=== PATIENT | male | born 1990 | race Caucasian/White ===

== ENCOUNTER 2024-05-11 17:45 | Emergency (ER) | payer MEDICAID, SELFPAY ==
[2024-05-11 18:17] VITALS: BP 128/89; PULSE 120; RESP 16; TEMP 36.9; O2SAT 99; BMI 26.6
--- NOTE | 2024-05-11 18:27 | XR_ITS ---
Examination: PA lateral chest 2 views Technique: Upright PA lateral chest 2 views Exam date and time: May 11, 2024 1840 hrs. Indications coughing beginning 8 days ago. Findings: Normal heart size Lungs are clear. The osseous structures are intact Impression: No active disease
--- NOTE | 2024-05-11 18:27 | EDNOTE_ITS ---
Upper Respiratory Inf. RME/HPI General Chief Complaint: Flu Like Symptoms Stated Complaint: LUNG PAIN/DIFF BRETHING x 5 DAYS, ON ANTIBIOTICS Time Seen by Provider: 05/11/24 18:15 Source: patient Arrival date/time: 05/11/24 17:45 33-year-old male past medical history of recreational drug abuse and every day vaping presents to the emergency department complains of lung pain and difficulty breathing for 9 days. Patient reports is currently on antibiotics and steroids that were given to him by his primary care provider. Patient reports pulse is usually elevated at his resting pulse is around 115's. Patient reports is worried about having pneumonia and will like to have chest x-ray. Mode of arrival: ambulatory Limitations: no limitations Related Data Previous Rx's ?Medication ?Instructions ?Recorded docusate sodium 100 mg capsule 100 mg PO BID #40 caps 06/05/23 (Colace) hydrocodone 5 mg-acetaminophen 325 1 tab PO Q6H PRN pain (scale score 06/05/23 mg tablet 7-10) #20 tabs ibuprofen 600 mg tablet 600 mg PO Q8H PRN pain (scale 06/05/23 score 4-6) #15 tabs Allergies Allergy/AdvReac Type Severity Reaction Status Date / Time No Known Allergies Allergy Verified 05/11/24 17:52 Review of Systems Review of Systems Systems Reviewed: All systems reviewed, normal except as documented Constitutional Constitutional: Reports system reviewed and no additional complaints, except as documented, Denies body ache(s), Denies chills and Denies fever(s) Eyes Eyes: Reports system reviewed and no additional complaints, except as documented and Denies change in vision ENT Ears, Nose, Mouth, and Throat: Reports system reviewed and no additional complaints, except as documented, Denies disequilibrium, Denies dizziness, Denies sore throat and Denies vertigo Cardiovascular Cardiovascular: Reports system reviewed and no additional complaints, except as documented, Denies chest pain and Reports dyspnea Respiratory Respiratory: Reports system reviewed and no additional complaints, except as documented, Denies chest congestion, Reports cough, Reports dyspnea and Reports other (Lung pain) Gastrointestinal Gastrointestinal: Reports system reviewed and no additional complaints, except as documented, Denies abdominal pain, Denies nausea and Denies vomiting Musculoskeletal Musculoskeletal: Reports system reviewed and no additional complaints, except as documented, Denies abnormal gait and Denies arthralgias Integumentary/Breasts Skin/Breast: Reports system reviewed and no additional complaints, except as documented, Denies erythema, Denies rash and Denies wounds Neurologic Neurologic: Reports system reviewed and no additional complaints, except as documented, Denies abnormal gait, Denies disequilibrium, Denies dizziness and Denies vertigo Past Medical History Past Medical History NEUROLOGIC: Negative Neurological Disorders or Seizures CARDIAC: Negative Cardiac Disorders or Congestive Heart Failure RESPIRATORY: Negative Chronic Obstructive Pulmonary Disease (COPD) or Asthma GASTROINTESTINAL: Negative Gastrointestinal Disorders GENITOURINARY: Negative Genitourinary Disorders or Renal Disease MUSCULOSKELETAL: Positive Musculoskeletal Disorders ENDOCRINE: Negative Endocrine Disorders, Diabetes Mellitus Type 1 or Diabetes Mellitus Type 2 HEMATOLOGIC: Negative Blood Disorders or Sickle Cell Disease OTHER HISTORY: Positive Chicken Pox; Negative Hospitalization, Autoimmune Disease, Shingles, Blood Transfusions, Blood Transfusion Reaction, Anesthesia Reactions or Cancer Family History FAMILY HISTORY: Positive Family Cardiac Disorders and Family Surgery; Negative Family Psychiatric Problems, Family Respiratory Disorders, Family Gastrointestinal Problems, Family Cancer or Family Anesthesia Reaction Social History SMOKING STATUS: Never smoker ED Exam General Limitations: Present no limitations General appearance: Present alert and in no apparent distress Head Head exam: Present atraumatic Eye Eye exam: Present normal appearance, PERRL and EOMI ENT ENT exam: Present normal exam, normal oropharynx and mucous membranes moist Neck Neck exam: Present normal inspection, full ROM and trachea midline Chest Chest inspection: Present normal inspection and symmetric chest wall rise Respiratory Respiratory exam: Present normal lung sounds bilaterally Cardiovascular Cardiovascular exam: Present regular rate, normal rhythm and normal heart sounds Abdominal Exam Abdominal exam: Present soft and normal bowel sounds Extremities Exam Extremities exam: Present normal inspection and full ROM Back Exam Back exam: Present normal inspection and full ROM Neurological Exam Neurological exam: Present alert, oriented X3 and CN II-XII intact Psychiatric Psychiatric exam: Present normal affect and normal mood Skin Skin exam: Present warm, dry, intact and normal color Course Quality Measures none Orders Category Date Time Status XR chest 2V Stat Exams 05/11/24 18:27 Completed Vital Signs Vital signs: Vital Signs Temperature 98.5 F 05/11/24 18:17 Pulse Rate 120 H 05/11/24 18:17 Respiratory Rate 16 05/11/24 18:17 Blood Pressure 128/89 H 05/11/24 18:17 Pulse Oximetry (%) 99 05/11/24 18:17 Oxygen Delivery Method Room Air 05/11/24 18:17 99% room air within normal limits Upper Respiratory Infection MDM Narrative MDM Narrative:: 33-year-old male past medical history of recreational drug abuse and every day vaping presents to the emergency department complains of lung pain and difficulty breathing for 9 days. Patient reports is currently on antibiotics and steroids that were given to him by his primary care provider. Patient reports pulse is usually elevated at his resting pulse is around 115's. Patient reports is worried about having pneumonia and will like to have chest x-ray. Patient reports is currently on Augmentin antibiotic. Patient appears nontoxic and is hemodynamically stable. No adventitious lung sounds on auscultation. Chest x-ray obtained negative for pneumonic infiltrates. Patient data External records reviewed:: [facility] previous records Clinical information provided by:: patient Social determinants that could affect healthcare access:: none Patient has the following chronic illnesses:: See chart How is presenting disease/condition affected by chronic disease/condition?: uneffected by Evaluation data The following diagnostics were reviewed and interpreted by me:: radiology exam(s) Lab and/or radiology exams considered but not ordered:: Ordered Interpretation Summary: Interpreted by me Medications / Prescriptions Medications or Prescriptions considered but not ordered:: N/A Medication administrations:: N/A Consultations Consultation(s) initiated? (list below): No Diagnosis Upper Respiratory Differential Diagnosis: upper respiratory infection, viral infection, bronchitis, influenza and pharyngitis Most likely diagnosis given after review of the tests above:: Viral infection Admission Indicated Admission indicated?: not indicated Admission Request Was there a request for admission?: No Disposition Plan Disposition Plan: Discharge Discharge Attestation Discharge Attestation: The patient and all family members were given an opportunity to ask questions and understood the discharge instructions. Discharge instructions specifically effects, indications for sooner follow up or return to the emergency department, and the expected course of current diagnosis. Patient condition: Stable Discharge Plan Plan Patient Disposition: HOME (Self Care) Disposition Comment: Stable Prescriptions/Referrals Prescriptions/Med Rec: No Action docusate sodium [Colace] 100 mg capsule 100 mg PO BID Qty: 40 0RF ibuprofen 600 mg tablet 600 mg PO Q8H PRN (Reason: pain (scale score 4-6)) Qty: 15 0RF hydrocodone-acetaminophen 5-325 mg tablet 1 tab PO Q6H MDD 4 PRN (Reason: pain (scale score 7-10)) Qty: 20 0RF Referrals: SQ Joey,Howard, MD [Primary Care Provider] - In 1 week Problem List Clinical Impression: Viral infection Patient/Caregiver Discharge Instructions Discharge Activity: activity as tolerated Education Materials: ED Viral Syndrome (Adult) Additional Instructions: Drink plenty of fluids and get plenty of rest. Avoid vaping for the next several days. Take Tylenol or ibuprofen as needed for fever or pain. Continue taking your antibiotics and cough medication as prescribed by your primary care provider. Follow-up with your primary care provider in 2 to 3 days. Return to emergency department for any worsening symptoms or as needed. Print Language: Guyanese Stand Alone Forms: Luanne Award Info., Patient Portal Info Letter PA/ALPINE GUIDE Supervising Physician PA/ALPINE GUIDE Supervising Physician: Dr. Musa
== END 2024-05-11 19:19 | disposition home or self-care (01) ==
PROVIDERS: Emergency Provider Emergency Medicine; PCP Family Medicine
DX: B34.9 Viral infection, unspecified (principal)
CPT/HCPCS: 71046; 99283

== ENCOUNTER 2024-07-20 23:23 | Emergency (ER) | payer MEDICAID, SELFPAY ==
[2024-07-20 23:35] VITALS: BP 130/80; PULSE 115; RESP 18; TEMP 36.6; O2SAT 97; BMI 24.5
--- NOTE | 2024-07-20 23:47 | XR_ITS ---
Examination: CT pelvis with intravenous contrast. 2-D sagittal and coronal reconstructions. Date and time of exam:July 21, 2024 0148 hours INDICATIONS: Right inguinal mass noted beginning 5 weeks ago CTDI: vol (mGy) :7.01 DLP: (mGycm) : 262 Technique: Multiple 3 mm axial sections of the pelvis have been obtained with the 64 slice high resolution scanner. 2-D sagittal and coronal reconstructions. Intravenous administration 60 cc Isovue 370 Low dose protocols were performed. One or more of the following dose reduction techniques were used; automated exposure control, adjustment of the mA and/or KV according to patient size, use of iterative reconstruction technique. Findings: Nonobstructive bowel gas pattern Normal appendix No diverticulitis Normal seminal vesicles No prostatomegaly Fat-containing right inguinal hernia No bowel present in this hernia defect IMPRESSION: Small fat-containing right inguinal hernia
--- NOTE | 2024-07-20 23:47 | EDNOTE_ITS ---
ED Abdominal Pain RME/HPI General Chief Complaint: Abdominal Pain Stated complaint: RIGHT LOWER ABD PAIN Time seen by provider: 07/20/24 23:46 Arrival date/time: 07/20/24 23:23 RME / HPI RME / HPI narrative: This section includes all my notes and documentations, including HPI, PE, and ED course. Madan Giron MD HPI: 34-year-old male here to be evaluated with possible right inguinal hernia. Left inguinal hernia repair by Dr. Walter a year ago. He reports right groin mass that comes and goes. Urinating and bowel movements and at times just standing can cause the mass to come out. No significant pain. No other complaints. ROS: All negative except as documented in HPI. Physical Exam: General: Alert and oriented. Eyes: Conjunctivae and lids clear. ENT: No nasal congestion. Neck: Supple. Lungs: No respiratory distress. Skin: Warm and dry. Neuro: Alert and oriented X 3. Abdomen: Soft and nontender. Genital: Normal circumcised penis. Right inguinal hernia, size of a golf ball, palpable but easily reducible. My review of the pelvis CT report is no acute findings. Blood and urine tests unremarkable. Recommended supportive care and more care with Dr. Walter. Based on my best medical judgment, made decision no further evaluation or treatment indicated at this time. Patient understands and agrees to the discharge instructions customized and printed, see below. Discharge Instructions from Dr. Giron printed for you: 1. After evaluation, you have right inguinal hernia. 2. The hernia comes out and goes back in so it's not incarcerated. 3. Avoid increasing abdominal pressure (such as when lifting or pushing too hard during bowel movements). Apply pressure with both hands when standing or pushing during urinating to prevent the hernia from coming out and getting stuck. 4. Where hernia briefs. 5. See Dr. Walter on 07/22/2024 for further care, including surgery. Call the office and let them know you were seen in the ER and he was on-call and he performed your left inguinal hernia surgery last year. 6. Seek immediate medical care with worsening, if the hernia does not go back in the abdomen, or with any concerns. Madan Giron MD Related Data Allergies Allergy/AdvReac Type Severity Reaction Status Date / Time No Known Allergies Allergy Verified 07/20/24 23:24 Course Quality Measures none Orders Category Date Time Status CT Screening NOW Care 07/20/24 23:48 Completed Saline [Insert IV] NOW Care 07/20/24 23:[address] pelvis w con Stat Exams 07/20/24 23:47 Completed CBC Stat Lab 07/20/24 23:47 Completed CMP [Comprehensive Metabolic Panel] Stat Lab 07/20/24 23:47 Completed Magnesium Stat Lab 07/20/24 23:47 Completed PT [Prothrombin Time with INR] Stat Lab 07/20/24 23:47 Completed PTT [Partial Thromboplastin Time] Stat Lab 07/20/24 23:47 Completed UA, C/S IF [Urinalysis, C/S if Indicated] Stat Lab 07/21/24 01:15 Completed Sodium Chloride 0.9% 1000 ml [Ns] 1,000 ml Med 07/20/24 23:47 Discontinued IV 999 mls/hr Vital Signs Vital signs: Vital Signs Temperature 97.8 F 07/20/24 23:35 Pulse Rate 115 H 07/20/24 23:35 Respiratory Rate 18 07/20/24 23:35 Blood Pressure 130/80 07/20/24 23:35 Pulse Oximetry (%) 97 07/20/24 23:35 Oxygen Delivery Method Room Air 07/20/24 23:35 Abdominal Pain MDM Patient data External records reviewed:: [facility] previous records Clinical information provided by:: patient Social determinants that could affect healthcare access:: none Patient has the following chronic illnesses:: None How is presenting disease/condition affected by chronic disease/condition?: no chronic disease Evaluation data The following diagnostics were reviewed and interpreted by me:: lab results and radiology exam(s) Lab and/or radiology exams considered but not ordered:: None Interpretation Summary: Normal diagnostics Medications / Prescriptions Medications or Prescriptions considered but not ordered:: None Medication administrations:: Medication Administration History Discontinued Medications Sodium Chloride (Ns) 1,000 mls @ 999 mls/hr IV .Q1H1M ONE Stop: 07/21/24 00:47 Last Infusion: 07/21/24 01:30 Dose: Infused Documented By: Admin: 07/21/24 00:29 Dose: 999 mls/hr Documented By: VALENTINE IV fluid Consultations Consultation(s) initiated? (list below): No Diagnosis Differential diagnosis abdominal pain: other (UTI, right inguinal hernia, hernia incarceration) Most likely diagnosis given after review of the tests above:: Reducible right inguinal hernia Admission Indicated Admission indicated?: not indicated Explain why admission is indicated or not indicated:: There was no indication for admission. Admission Request Was there a request for admission?: No Disposition Plan Disposition Plan: Discharge Discharge Attestation Discharge Attestation: The patient and all family members were given an opportunity to ask questions and understood the discharge instructions. Discharge instructions specifically effects, indications for sooner follow up or return to the emergency department, and the expected course of current diagnosis. Patient condition: Stable Discharge Plan Plan Patient Disposition: HOME (Self Care) Prescriptions/Referrals Referrals: Howard Cook MD [Primary Care Provider] - In 1 week Problem List Clinical Impression: Right inguinal hernia Patient/Caregiver Discharge Instructions Discharge Activity: activity as tolerated Education Materials: ED Hernia (Adult) Additional Instructions: Discharge Instructions from Dr. Giron printed for you: 1. After evaluation, you have right inguinal hernia. 2. The hernia comes out and goes back in so it's not incarcerated. 3. Avoid increasing abdominal pressure (such as when lifting or pushing too hard during bowel movements). Apply pressure with both hands when standing or pushing during urinating to prevent the hernia from coming out and getting stuck. 4. Where hernia briefs. 5. See Dr. Walter on 07/22/2024 for further care, including surgery. Call the office and let them know you were seen in the ER and he was on-call and he performed your left inguinal hernia surgery last year. 6. Seek immediate medical care with worsening, if the hernia does not go back in the abdomen, or with any concerns. Print Language: Urdu Stand Alone Forms: Luanne Award Info., Patient Portal Info Letter
[2024-07-21 00:19] VITALS: BP 142/81; PULSE 108; RESP 18; TEMP 36.8; O2SAT 95
[2024-07-21 00:21] LABS: Basophils # (Auto) 0.1 Thou/mm3 (0.0-0.2); Basophils % (Auto) 1 % (0-2.5); Eosinophils # (Auto) 0.2 Thou/mm3 (0.0-0.5); Eosinophils % (Auto) 2 % (0-10); Hematocrit 39.8 % (41.0-53.0); Hemoglobin 13.7 g/dL (13.5-16.0); Immature Granulocytes % (Auto) 0 % (0-0); Immature Granulocytes Auto 0.02 Thou/mm3 (0.00-0.00); Lymphocytes # (Auto) 2.6 Thou/mm3 (1.0-4.8); Lymphocytes % (Auto) 34 % (10-50); Mean Corpuscular HGB Conc 34.4 g/dl (31.0-37.0); Mean Corpuscular Hemoglobin 28.4 pg (25.0-35.0); Mean Corpuscular Volume 82 fL (80-100); Monocytes # (Auto) 0.6 Thou/mm3 (0.0-0.8); Monocytes % (Auto) 8 % (0-12); Neutrophils # (Auto) 4.1 Thou/mm3 (1.8-7.7); Neutrophils % (Auto) 55 % (37-80); Nucleated Red Blood Cell % 0 /100 WBC (0); Platelet Count 255 Thou/mm3 (140-440); RDW Standard Deviation 39.9 fL (35.1-43.9); Red Blood Count 4.83 Miln/mm3 (4.50-5.90); White Blood Count 7.5 Thou/mm3 (3.8-10.6)
[2024-07-21] MEDS: SODIUM CHLORIDE 0.9% 1000 ML 1,000 ML 999 ML IV (00:29)
[2024-07-21 00:35] LABS: Partial Thromboplastin Time 27.3 Seconds (22.0-36.0); Prothrombin Time 11.4 Seconds (9.0-12.2)
[2024-07-21 00:37] LABS: Alanine Aminotransferase 17 U/L (10-49); Albumin, Serum 4.1 gm/dL (3.5-5.0); Albumin/Globulin Ratio 1.6 (1.2-2.2); Alkaline Phosphatase 103 U/L (46-116); Anion Gap 8 (7-16); Aspartate Amino Transferase 23 U/L (0-34); BUN/Creatinine Ratio 11 Ratio (12-20); Bilirubin,Total 0.5 mg/dL (0.3-1.2); Blood Urea Nitrogen 13 mg/dL (9-23); Carbon Dioxide 25.8 mMol/L (20.0-31.0); Chloride 105 mMol/L (98-107); Creatinine (Component) 1.2 mg/dL (0.6-1.3); Estimated Creatinine Clearance 89.6 mL/min (>60); Globulin 2.5 gm/dL (2.3-3.5); Glucose 107 mg/dL (74-106); Magnesium 1.9 mg/dL (1.6-2.6); Osmolality,Calculated 277 (275-295); Potassium 3.8 mMol/L (3.4-5.1); Sodium 139 mMol/L (136-145); Total Protein 6.6 gm/dL (5.7-8.2); eGFR > 60 See Note
[2024-07-21 01:21] LABS: Collection Type, Urine Clean Catch; RBC,Urine 0 /hpf (0-3); WBC,Urine 0 /hpf (0-5)
[2024-07-21 01:30] LABS: Bacteria,Urine Rare; Bilirubin,Urine Negative (Negative); Blood,Urine Negative (Negative); Clarity,Urine Turbid (Clear/Hazy); Color,Urine Yellow (Lt Yel-Yel); Culture Indicated,Urine Not Indicated; Glucose, Urine Negative (Negative); Ketones,Urine Negative (Negative); Leukocyte Esterase,Urine Negative (Negative); Nitrite,Urine Negative (Negative); Protein,Urine Trace (Neg - Trace); Specific Gravity,Urine 1.027 (1.001-1.035); Squamous Epithelial Cell,Urine < 1 /hpf (0-5)
--- NOTE | 2024-07-21 01:41 | PC.NURSE ---
Pt taken to CT scan via wheelchair
--- NOTE | 2024-07-21 02:57 | PRELIM_ITS ---
CT scan of the pelvis with intravenous contrast (axial sections with sagittal and coronal reformats) July 21, 2024 at 0148 hours Clinical History: Right inguinal mass Comparison: None. Findings: No evidence of bowel obstruction. The urinary bladder is within normal limits. The prostate is normal in size and outline. There is no free fluid or free air. No evidence of significant lymphadenopathy. The distal abdominal aorta and IVC are unremarkable. The osseous structures appear unremarkable. No right groin masses. Impression: Unremarkable CT scan of the pelvis. No right groin masses. Report Electronically Signed By: Daljit Mac 07/21/2024 2:57:04 AM [EST]
[2024-07-21 03:08] VITALS: BP 108/73; PULSE 85; RESP 19; TEMP 36.6; O2SAT 96
[2024-07-21 04:20] VITALS: BP 138/83; PULSE 73; RESP 18; TEMP 36.7; O2SAT 98
== END 2024-07-21 04:20 | disposition home or self-care (01) ==
PROVIDERS: Emergency Provider Emergency Medicine; PCP Family Medicine
DX: K40.90 Unilateral inguinal hernia, without obstruction or gangrene, not specified as recurrent (principal)
CPT/HCPCS: 36415; 72193; 80053; 81001; 83735; 85025; 85610; 85730; 99285; A4649; J7030; Q9967

== ENCOUNTER 2024-10-15 23:38 | Emergency (ER) | payer MEDICAID, SELFPAY ==
[2024-10-15 23:38] VITALS: BMI 25.8
[2024-10-16 00:04] VITALS: BP 145/89; PULSE 98; RESP 18; TEMP 37; O2SAT 96
--- NOTE | 2024-10-16 00:56 | PD.EDRME ---
Rapid Medical Screening Exam RME Arrival date/time: 10/15/24 23:38 34M with history of inguinal hernia presents to ED with several months of worsening R-sided one. Patient previous has surgery on L-side. Patient has been trying to get into see various general surgeons, but somehow he keeps missing the appointments. Patient denies inability to have BM and urination, as well as N/V. Patient wanted to have imaging done to monitor progression because it is much worse than it was 3 months ago. However, he changed his mind and will call general surgeon's office in the morning. Chief Complaint: General Adult/Misc Complain Time Seen by Provider: 10/16/24 00:25 Vital signs: Vital Signs Temperature 98.6 F 10/16/24 00:04 Pulse Rate 98 10/16/24 00:04 Respiratory Rate 18 10/16/24 00:04 Blood Pressure 145/89 H 10/16/24 00:04 Pulse Oximetry (%) 96 10/16/24 00:04 Oxygen Delivery Method Room Air 10/16/24 00:04
== END 2024-10-16 01:20 | disposition left against medical advice (07) ==
LOC: SERX 10-16 00:57
PROVIDERS: Emergency Provider Emergency Medicine; PCP Physician Assistant
DX: K40.90 Unilateral inguinal hernia, without obstruction or gangrene, not specified as recurrent (principal); Z98.890 Other specified postprocedural states; Z53.29 Procedure and treatment not carried out because of patient's decision for other reasons
CPT/HCPCS: 80053; 83605; 85025; 99281

== ENCOUNTER 2024-10-19 09:56 | Emergency (ER) | payer MEDICAID, SELFPAY ==
[2024-10-19 10:22] VITALS: BP 120/75; PULSE 111; RESP 18; TEMP 36.5; O2SAT 97; BMI 26.2
--- NOTE | 2024-10-19 10:46 | PD.EDRME ---
Rapid Medical Screening Exam RME Arrival date/time: 10/19/24 09:56 This is a 34M with history of inguinal hernia presents to ED with several months of worsening R-sided one. Patient previous has surgery on L-side. Patient has been trying to get into see various general surgeons, but somehow he keeps missing the appointments. He reports that he is having trouble urinating. Patient denies inability to have BM. Patient also complains of nausea. Today patient was in snf and was complaining of difficulty urinating and they released him from sn[facility] and brought him to the emergency room. I have greeted and performed a focused initial assessment of this patient. Initial appropriate labs ordered at this time. A comprehensive ED assessment and evaluation of the patient and analysis of all test and completion of medical decision making process will be conducted by additional ED provider. Chief Complaint: General Adult/Misc Complain Time Seen by Provider: 10/19/24 10:08 Vital signs: Vital Signs Temperature 97.7 F 10/19/24 10:22 Pulse Rate 111 H 10/19/24 10:22 Respiratory Rate 18 10/19/24 10:22 Blood Pressure 120/75 10/19/24 10:22 Pulse Oximetry (%) 97 10/19/24 10:22 Oxygen Delivery Method Room Air 10/19/24 10:22
[2024-10-19 11:15] LABS: Lactate (Lactic Acid) 1.4 mMol/L (0.4-2.0)
[2024-10-19 11:16] LABS: Basophils # (Auto) 0.1 Thou/mm3 (0.0-0.2); Basophils % (Auto) 1 % (0-2.5); Eosinophils # (Auto) 0.2 Thou/mm3 (0.0-0.5); Eosinophils % (Auto) 3 % (0-10); Hemoglobin 14.4 g/dL (13.5-16.0); Immature Granulocytes % (Auto) 0 % (0-0); Immature Granulocytes Auto 0.01 Thou/mm3 (0.00-0.00); Lymphocytes # (Auto) 1.6 Thou/mm3 (1.0-4.8); Lymphocytes % (Auto) 24 % (10-50); Mean Corpuscular HGB Conc 34.3 g/dl (31.0-37.0); Mean Corpuscular Hemoglobin 29.1 pg (25.0-35.0); Mean Corpuscular Volume 85 fL (80-100); Monocytes # (Auto) 0.5 Thou/mm3 (0.0-0.8); Monocytes % (Auto) 7 % (0-12); Neutrophils # (Auto) 4.4 Thou/mm3 (1.8-7.7); Neutrophils % (Auto) 66 % (37-80); Nucleated Red Blood Cell % 0 /100 WBC (0); Platelet Count 231 Thou/mm3 (140-440); RDW Standard Deviation 41.6 fL (35.1-43.9); Red Blood Count 4.95 Miln/mm3 (4.50-5.90); White Blood Count 6.7 Thou/mm3 (3.8-10.6)
[2024-10-19 11:19] VITALS: BP 117/72; PULSE 79; RESP 16; TEMP 36.7; O2SAT 99
--- NOTE | 2024-10-19 11:31 | XR_ITS ---
Examination: CT abdomen with intravenous contrast CT pelvis with intravenous contrast 2-D coronal reconstructions 2-D sagittal reconstructions Date and time of exam:October 19, 2024, 1150 hrs. Indications: Right inguinal hernia pain beginning 3 months ago. CTDI: vol (mGy) 6.93 DLP: (mGycm) 418 Technique: Multiple axial sections of the abdomen and pelvis have been obtained. 64 slice high-resolution scanner used. 3 mm axial sections have been obtained, post intravenous injection 60 cc [id number]-370 2-D sagittal, coronal reconstructions obtained. Low dose protocols were performed. One or more of the following dose reduction techniques were used; automated exposure control, adjustment of the mA and/or KV according to patient size, use of iterative reconstruction technique. Findings: No focal liver or splenic lesions Contracted gallbladder. No pancreatic edema Normal adrenal glands No renal or ureteral calculi, no hydronephrosis Aorta normal size Normal appendix. No bowel obstruction No diverticulitis. Negative for prostatomegaly Urinary bladder intact Fat-containing right inguinal hernia, no bowel present in this hernia defect Impression: Fat-containing right inguinal hernia, no bowel present in this hernia defect Suspicious for right varicoceles, consider testicular sonography follow-up
--- NOTE | 2024-10-19 11:33 | PD.EDABDPN ---
ED Abdominal Pain RME/HPI General Chief Complaint: General Adult/Misc Complain Stated complaint: PAINFUL HERNIA Time seen by provider: 10/19/24 10:08 Arrival date/time: 10/19/24 09:56 Limitations: no limitations RME / HPI RME / HPI narrative: 10/19/24 09:56 This is a 34M with history of inguinal hernia presents to ED with several months of worsening R-sided one. Patient previous has surgery on L-side. Patient has been trying to get into see various general surgeons, but somehow he keeps missing the appointments. He reports that he is having trouble urinating. Patient denies inability to have BM. Patient also complains of nausea. Today patient was in custodial and was complaining of difficulty urinating and they released him from custodial and brought him to the emergency room. I have greeted and performed a focused initial assessment of this patient. Initial appropriate labs ordered at this time. A comprehensive ED assessment and evaluation of the patient and analysis of all test and completion of medical decision making process will be conducted by additional ED provider. 11:30 AM Patient is 34-year-old male who is here today with a 2-week history of right-sided inguinal pain and a protruding mass. He states he has a history of a left-sided 1 that was surgically repaired. He has had intermittent swelling along the right side for the past year but got worse last 2 weeks. She states he developed increased pain in last 2 days. He has nausea but no vomiting. He denies any other chronic medical illnesses. Does not take any medications. Has no drug allergies. He states he made an appointment with a general surgeon here in [place], [place], but cannot be seen until sometime in October. He has no other acute complaints. Ally Avila PA-C Related Data Allergies Allergy/AdvReac Type Severity Reaction Status Date / Time No Known Allergies Allergy Verified 10/19/24 09:57 Review of Systems Review of Systems Systems Reviewed: All systems reviewed, normal except as documented ED Exam General Limitations: Present no limitations General appearance: Present alert and in no apparent distress Head Head exam: Present atraumatic Eye Eye exam: Present normal appearance, PERRL and EOMI ENT ENT exam: Present normal exam, normal oropharynx and mucous membranes moist Neck Neck exam: Present normal inspection, full ROM and trachea midline Chest Chest inspection: Present normal inspection and symmetric chest wall rise Respiratory Respiratory exam: Present normal lung sounds bilaterally Cardiovascular Cardiovascular exam: Present regular rate, normal rhythm and normal heart sounds Abdominal Exam Abdominal exam: Present soft, normal bowel sounds and other (Nonreducible right sided inguinal mass that is tender, firm, without erythema or warmth.) Extremities Exam Extremities exam: Present normal inspection and full ROM Back Exam Back exam: Present normal inspection and full ROM Neurological Exam Neurological exam: Present alert, oriented X3 and CN II-XII intact Psychiatric Psychiatric exam: Present other (Anxious) Skin Skin exam: Present warm, dry, intact and normal color Course Quality Measures none Orders Category Date Time Status CT Screening NOW Care 10/19/24 11:[address] abdomen pelvis w con Stat Exams 10/19/24 11:31 Completed CBC Stat Lab 10/19/24 11:00 Completed Comprehensive Metabolic Panel Stat Lab 10/19/24 11:00 Completed Drug Screen,Urine Stat Lab 10/19/24 13:35 Completed Lactic Acid [Lactate (Lactic Acid)] Stat Lab 10/19/24 11:00 Completed Urinalysis, C/S if Indicated Stat Lab 10/19/24 13:35 Received Morphine Inj Med 10/19/24 11:31 Discontinued 4 mg IVP X1 ONE Nicotine Patch [Nicoderm Patch] Med 10/19/24 13:35 Discontinued 14 mg TOP X1 ONE Ondansetron Inj [Zofran Inj] Med 10/19/24 11:31 Discontinued 4 mg IVP X1 ONE Vital Signs Vital signs: Vital Signs Temperature 97.7 F 10/19/24 10:22 Pulse Rate 111 H 10/19/24 10:22 Respiratory Rate 18 10/19/24 10:22 Blood Pressure 120/75 10/19/24 10:22 Pulse Oximetry (%) 97 10/19/24 10:22 Oxygen Delivery Method Room Air 10/19/24 10:22 Abdominal Pain MDM MDM Narrative MDM Narrative:: 34-year-old male here today of right lower quadrant and right pelvic pain that extends to his right testicle. He states he has a history of a inguinal hernia and has a follow-up appointment with surgery next month. He is here today with worsening pain. On exam, patient has a right-sided inguinal mass and there is edema at the right testicle additionally. Patient is anxious appearing, speech is rapid, and pressured. Vital signs are stable. Patient asked to leave the ER multiple times however agreed to stay after nursing staff discussed the need to wait for test results. Patient was worked up for possible incarcerated hernia. CT was obtained and results were reviewed with the patient. Ultrasound was offered in the ER however the patient declined this. When reviewing all the patient's test results. Patient verbalized discontent and frustration that he was tested for drugs in his system. We discussed that this was important due to his presentation, and may have factored in if emergent surgery was acquired for incarcerated hernia. Patient verbalized further discontent with this and asked to leave the emergency room. We discussed the need to follow-up with surgery as planned. Return as needed for any worsening emergent changes. Patient data External records reviewed:: Other (specify) Clinical information provided by:: patient Social determinants that could affect healthcare access:: substance use Patient has the following chronic illnesses:: n/a How is presenting disease/condition affected by chronic disease/condition?: no chronic disease Evaluation data The following diagnostics were reviewed and interpreted by me:: lab results (No leukocytosis, no metabolic derangement, lactic acid is unremarkable. Urine drug screen is positive for methamphetamines.) and radiology exam(s) Lab and/or radiology exams considered but not ordered:: CT scan confirms nonincarcerated, fat-containing, inguinal hernia. There is mention of possible right sided varicocele that was discussed with patient. Interpretation Summary: No incarcerated hernia or bowel obstruction Medications / Prescriptions Medications or Prescriptions considered but not ordered:: n/a Medication administrations:: Medication Administration History Discontinued Medications Morphine Sulfate (Morphine Sulf Inj 10 Mg/Ml Vial) 4 mg IVP X1 ONE Stop: 10/19/24 11:32 Last Admin: 10/19/24 11:37 Dose: 4 mg Documented By: EF Nicotine (Nicotine Patch 14 Mg/24 Hr Patch.Td24) 14 mg TOP X1 ONE Stop: 10/19/24 13:36 Last Admin: 10/19/24 13:57 Dose: 14 mg Documented By: EF Ondansetron HCl (Ondansetron Inj 2 Mg/Ml Inj 2 Ml) 4 mg IVP X1 ONE; Protocol Stop: 10/19/24 11:32 Last Admin: 10/19/24 11:37 Dose: 4 mg Documented By: EF See above Consultations Consultation(s) initiated? (list below): No Diagnosis Differential diagnosis abdominal pain: abdominal pain, calculus of kidney, constipation and small bowel obstruction Most likely diagnosis given after review of the tests above:: Nonincarcerated inguinal hernia, methamphetamine abuse Admission Indicated Admission indicated?: not indicated Admission Request Was there a request for admission?: No Disposition Plan Disposition Plan: Discharge Discharge Attestation Discharge Attestation: The patient and all family members were given an opportunity to ask questions and understood the discharge instructions. Discharge instructions specifically effects, indications for sooner follow up or return to the emergency department, and the expected course of current diagnosis. Patient condition: Stable Discharge Plan Plan Patient Disposition: HOME (Self Care) Patient condition on transfer: Stable Prescriptions/Referrals Referrals: Kev Delcid PA-C [Primary Care Provider] - In 1 week Problem List Clinical Impression: Inguinal hernia, Methamphetamine abuse Patient/Caregiver Discharge Instructions Education Materials: What Is a Varicocele, ED Drug Abuse, ED Hernia (Adult) Additional Instructions: Follow-up with your general surgeon as planned. As discussed, your CT scan also indicates you may have a right-sided varicocele. An ultrasound was offered to you today as a diagnostic study. Please discontinue methamphetamine use. Please return for any nausea or vomiting.Please return to the emergency room anytime for any increased or worsening pain. Print Language: Gabonese Stand Alone Forms: Luanne Award Info., Patient Portal Info Letter
[2024-10-19] MEDS: ONDANSETRON INJ 2 MG/ML INJ 2 ML 4 MG IVP (11:37)
[2024-10-19] MEDS: MORPHINE SULF INJ 10 MG/ML VIAL 4 MG IVP (11:37)
[2024-10-19 11:39] LABS: Alanine Aminotransferase 21 U/L (10-49); Albumin/Globulin Ratio 2.1 (1.2-2.2); Alkaline Phosphatase 94 U/L (46-116); Anion Gap 7 (7-16); Aspartate Amino Transferase 22 U/L (0-34); BUN/Creatinine Ratio 7 Ratio (12-20); Bilirubin,Total 0.4 mg/dL (0.3-1.2); Blood Urea Nitrogen 8 mg/dL (9-23); Calcium 9.1 mg/dL (8.3-10.6); Calcium (Corrected) 9.1 mg/dL (8.5-10.1); Carbon Dioxide 28.2 mMol/L (20.0-31.0); Chloride 107 mMol/L (98-107); Creatinine (Component) 1.1 mg/dL (0.6-1.3); Estimated Creatinine Clearance 94.6 mL/min (>60); Globulin 1.9 gm/dL (2.3-3.5); Glucose 111 mg/dL (74-106); Osmolality,Calculated 282 (275-295); Sodium 142 mMol/L (136-145); Total Protein 5.9 gm/dL (5.7-8.2); eGFR > 60 See Note
[2024-10-19 12:16] VITALS: BP 112/71; PULSE 77; RESP 18; TEMP 36.7; O2SAT 99
[2024-10-19 13:43] LABS: Collection Type, Urine Voided
[2024-10-19 13:52] LABS: Bilirubin,Urine Negative (Negative); Blood,Urine Negative (Negative); Clarity,Urine Clear (Clear/Hazy); Color,Urine Lt-Yellow (Lt Yel-Yel); Culture Indicated,Urine Not Indicated; Glucose, Urine Negative (Negative); Ketones,Urine Negative (Negative); Leukocyte Esterase,Urine Negative (Negative); Nitrite,Urine Negative (Negative); PH,Urine 6.5 (5.0-7.0); Protein,Urine Negative (Neg - Trace); RBC,Urine 1 /hpf (0-3); Specific Gravity,Urine 1.044 (1.001-1.035); Squamous Epithelial Cell,Urine 1 /hpf (0-5); Urobilinogen,Urine Negative mg/dL (0.0-1.0); WBC,Urine 1 /hpf (0-5)
[2024-10-19] MEDS: NICOTINE PATCH 14 MG/24 HR PATCH.TD24 TOP (13:57)
[2024-10-19 14:00] LABS: Amphetamine/Methamp Scrn,U Positive (Negative); Barbiturate Screen,Urine Negative (Negative); Benzodiazepines Screen,Urine Negative (Negative); Benzoylecgonine Screen, Ur Negative (Negative); Fentanyl Screen,Urine Negative (Negative); Opiate Screen,Urine Positive (Negative); THC Screen,Urine Negative (Negative)
--- NOTE | 2024-10-19 14:44 | PC.NURSE ---
patient wanted to leave did not want discharge vitals
== END 2024-10-19 14:50 | disposition home or self-care (01) ==
PROVIDERS: Nurse Practitioner Family; Physician Assistant Medical; Emergency Provider Family Medicine; PCP Physician Assistant
DX: K40.90 Unilateral inguinal hernia, without obstruction or gangrene, not specified as recurrent (principal); F15.10 Other stimulant abuse, uncomplicated
CPT/HCPCS: 36415; 74177; 80053; 80307; 81001; 83605; 85025; 96374; 96375; 99285; A4649; J2270; J2405; Q9967; A9270

== ENCOUNTER 2024-11-04 08:20 | Day surgery (SDC) | payer MEDICAID, SELFPAY ==
[2024-11-03 10:44] VITALS: BMI 26.6
[2024-11-03 11:24] LABS: Basophils # (Auto) 0.1 Thou/mm3 (0.0-0.2); Basophils % (Auto) 1 % (0-2.5); Eosinophils # (Auto) 0.3 Thou/mm3 (0.0-0.5); Eosinophils % (Auto) 5 % (0-10); Hematocrit 41.4 % (41.0-53.0); Hemoglobin 14.1 g/dL (13.5-16.0); Immature Granulocytes Auto 0.01 Thou/mm3 (0.00-0.00); Lymphocytes # (Auto) 2.6 Thou/mm3 (1.0-4.8); Lymphocytes % (Auto) 43 % (10-50); Mean Corpuscular HGB Conc 34.1 g/dl (31.0-37.0); Mean Corpuscular Hemoglobin 28.9 pg (25.0-35.0); Mean Corpuscular Volume 85 fL (80-100); Monocytes # (Auto) 0.5 Thou/mm3 (0.0-0.8); Monocytes % (Auto) 9 % (0-12); Neutrophils # (Auto) 2.6 Thou/mm3 (1.8-7.7); Neutrophils % (Auto) 43 % (37-80); Nucleated Red Blood Cell # 0.00 Thou/mm3 (0.00-0.00); Nucleated Red Blood Cell % 0 /100 WBC (0); Platelet Count 213 Thou/mm3 (140-440); RDW Standard Deviation 41.3 fL (35.1-43.9); Red Blood Count 4.88 Miln/mm3 (4.50-5.90); White Blood Count 6.0 Thou/mm3 (3.8-10.6)
[2024-11-03 11:50] LABS: Alanine Aminotransferase 16 U/L (10-49); Albumin, Serum 4.1 gm/dL (3.5-5.0); Albumin/Globulin Ratio 2.1 (1.2-2.2); Alkaline Phosphatase 86 U/L (46-116); Anion Gap 7 (7-16); Aspartate Amino Transferase 21 U/L (0-34); BUN/Creatinine Ratio 6 Ratio (12-20); Bilirubin,Total 0.7 mg/dL (0.3-1.2); Blood Urea Nitrogen 7 mg/dL (9-23); Calcium 8.9 mg/dL (8.3-10.6); Calcium (Corrected) 8.9 mg/dL (8.5-10.1); Carbon Dioxide 30.8 mMol/L (20.0-31.0); Chloride 107 mMol/L (98-107); Creatinine (Component) 1.1 mg/dL (0.6-1.3); Estimated Creatinine Clearance 91.5 mL/min (>60); Globulin 2.0 gm/dL (2.3-3.5); Glucose 99 mg/dL (74-106); Osmolality,Calculated 286 (275-295); Potassium 4.3 mMol/L (3.4-5.1); Sodium 145 mMol/L (136-145); Total Protein 6.1 gm/dL (5.7-8.2); eGFR > 60 See Note
[2024-11-03 11:57] LABS: INR 1.0 (0.9-1.3); Partial Thromboplastin Time 26.1 Seconds (22.0-36.0); Prothrombin Time 10.9 Seconds (9.0-12.2)
[2024-11-04] VITALS (7 sets, daily range): BP systolic 97–131; BP diastolic 49–77; PULSE 74–87; RESP 12–17; TEMP 36.2–36.4; O2SAT 97–100; BMI 26.4
[2024-11-04] MEDS: RINGERS LACTATED 1000 ML 1,000 ML 20 ML IV (10:32)
[2024-11-04] MEDS: MIDAZOLAM INJ 1 MG/ML VIAL 2 ML 2 MG IVP (12:55)
--- NOTE | 2024-11-04 14:27 | ESOP_ITS ---
Date of Procedure 11/04/24 Pre Op Diagnosis Symptomatic right inguinal hernia, incarcerated Post Op Diagnosis Same, indirect inguinal hernia Procedure Repair of the right indirect inguinal hernia with high ligation of the sac and placement of 2 x 4 Marlex mesh on the floor of the inguinal canal Findings Patient is found to have a large sac with widemouth it was a descending into the root of the scrotum. Procedure Description After the patient was given endotracheal anesthesia is lower abdomen was prepped with chloreprep solution and draped. Standard right groin incision was made in the external oblique was reached. Incision was made over the external oblique and the patient was found to have a large sac next to the cord structures. The cord structures were encircled around a [place] drain and the sac was easily . It was opened and was found to contain omentum. Patient had a large opening in this hernial sac in the mouth of the internal ring was wide. I suture ligated this with 2-0 chromic and then divided. Another 2-0 chromic suture ligation was used to prevent any slippage of the previous suture. Then I palpated the floor of the inguinal canal which appeared to be strong. I placed a 2 x 4 Marlex mesh and attached it medially to the pubic tubercle and laterally it was tucked underneath the external oblique after crossing the cord structures. I placed one stitch of Prolene lateral to the cord structures. Then external oblique was closed with running 2-0 Vicryl and subcutaneous tissues was approximated with 30 plain I injected half percent Marcaine with epinephrine for analgesia and the skin was closed with 4-0 Monocryl. Dressing was applied with Adaptic and 4 x 4 and the patient tolerated the procedure well and left operating room in stable condition. Anesthesia GETA Implants 2 x 4 Marlex mesh Pathology / specimen None IVF Infused 1,000 Estimated Blood Loss 30 Surgeon Sravanthi Presley MD Surgical Staff Operation Date: 11/04/24 10:15 Case Staff Anesthesiologist: Chris Schulz RN First Assistant: Yunior Carlos
--- NOTE | 2024-11-04 14:35 | SUR.PHASEI ---
1435: Pt. wakes to name then drifts back to sleep, vitals stable, breathing unlabored, no complaint of pain or nausea, dressing to lower right ABD CDI, no active bleed noted, report received from MD Schulz and Pascual CONDE.
[2024-11-04] MEDS: fentaNYL CIT INJ 50 mCg/ML AMP 2ML 25 MCG IVP (15:02)
--- NOTE | 2024-11-04 15:25 | SUR.PHASEII ---
1525: Pt. AAOx4, vitals stable, breathing unlabored, no complaint of pain or nausea, dressing to lower right ABD CDI, no active bleed noted, pt. tolerated sips of juice well, pt. ambulated to wheelchair with steady gait and no assist, no complications. Gave discharge instructions to the pt. and his ride, both verbalized understanding and had no further questions. Pt. left with all personal belongings.
== END 2024-11-04 15:25 | disposition home or self-care (01) ==
PROVIDERS: PCP Physician Assistant; Referring Provider Surgery; Visit Provider Surgery
PROC: (CPT 49507; principal; 2024-11-04 10:00)
DX: K40.30 Unilateral inguinal hernia, with obstruction, without gangrene, not specified as recurrent (principal)
CPT/HCPCS: 49507; 36415; 80053; 85025; 85610; 85730; A4217; A4649; C1781; J0461; J2250; J2704; J3010; J3490; J7120